=== PATIENT | female | born 1995 | race Caucasian/White ===

== ENCOUNTER 2022-10-06 11:19 | Emergency (ER) | payer OTHER ==
[~2022-10-06] VITALS: Ht 165.1 cm; Wt 108.9 kg
[2022-10-06] MEDS ORDERED: LEVSIN/SL0.125 MG SL (15:34)
[2022-10-06] MEDS ORDERED: ZOFRAN8 MG PO (15:34)
[2022-10-06] MEDS ORDERED: PEPCID AC20 MG PO (15:34)
== END 2022-10-06 15:56 | disposition home or self-care (01) ==
LOC: ER 11:19
DX: R10.31 Right lower quadrant pain (principal); R11.10 Vomiting, unspecified; R11.0 Nausea; Z91.013 Allergy to seafood

== ENCOUNTER 2022-12-09 13:01 | Emergency (ER) | payer OTHER ==
[~2022-12-09] VITALS: Ht 165.1 cm; Wt 113.4 kg
[~2022-12-09 13:01] MED LIST: LEVSIN/SL0.125 MG SL; PEPCID AC20 MG PO; ZOFRAN8 MG PO
[2022-12-09] MEDS ORDERED: SINGULAIR10 MG PO (13:30)
[2022-12-09] MEDS ORDERED: IPRAT-ALBUT 0.5-3 ML IH (15:42)
[2022-12-09] MEDS ORDERED: ZITHROMAX500 MG PO (15:42)
[2022-12-09] MEDS ORDERED: ONDANSETRON ODT8 MG PO (15:42)
[2022-12-09] MEDS ORDERED: TUSSIN100 MG/51 PO (15:42)
== END 2022-12-09 16:07 | disposition home or self-care (01) ==
LOC: ER 13:01
DX: J45.909 Unspecified asthma, uncomplicated (principal); R11.2 Nausea with vomiting, unspecified; Z3A.01 Less than 8 weeks gestation of pregnancy; Z20.822 Contact with and (suspected) exposure to COVID-19; Z91.013 Allergy to seafood

== ENCOUNTER 2022-12-15 18:46 | Emergency (ER) | payer OTHER ==
[~2022-12-15] VITALS: Ht 165.1 cm; Wt 113.4 kg
[~2022-12-15 18:46] MED LIST changes: +IPRAT-ALBUT 0.5-3 ML IH; +ONDANSETRON ODT8 MG PO; +SINGULAIR10 MG PO; +TUSSIN100 MG/51 PO; +ZITHROMAX500 MG PO
== END 2022-12-15 22:34 | disposition home or self-care (01) ==
LOC: ER 18:46
DX: O20.9 Hemorrhage in early pregnancy, unspecified (principal); Z3A.01 Less than 8 weeks gestation of pregnancy; Z91.013 Allergy to seafood